=== PATIENT | female | born 1945 | race Caucasian/White ===

== ENCOUNTER 2021-03-26 10:45 | Inpatient (IN) | payer MEDICARE ==
[~2021-03-26] VITALS: Ht 175.3 cm; Wt 136.1 kg
[2021-03-26 11:53] LABS: RED BLOOD COUNT 4.7 M/UL (4.00-5.10); WHITE BLOOD COUNT 8.9 K/UL (4.5-11.0)
[2021-03-26] MEDS ORDERED: HUMALOG MI100 UNIT/4 SQ ×2 (15:50→15:51)
[2021-03-26] MEDS ORDERED: TELMISARTAN80 MG PO (15:50)
[2021-03-26] MEDS ORDERED: GLIMEPIRIDE4 MG PO (15:50)
[2021-03-26] MEDS ORDERED: PAROXETINE HCL20 MG PO (15:51)
[2021-03-26] MEDS ORDERED: PRAVASTATIN SOD10 MG PO (15:52)
[2021-03-26] MEDS ORDERED: DILTIAZEM 24HR240 M1 PO (15:52)
[2021-03-26] MEDS ORDERED: METOPROLOL SUCC50 MG PO (15:53)
[2021-03-27 02:29] LABS: HEMOGLOBIN 12.8 gm/dl (12.3-15.3); RED BLOOD COUNT 4.37 M/UL (4.00-5.10); WHITE BLOOD COUNT 9.5 K/UL (4.5-11.0)
[2021-03-27 02:50] LABS: BUN/CREATININE RATIO 16 (0-10)
[2021-03-27 12:47] LABS: ACINETOBACTER BAUMANNII Not Detected (Negative); CANDIDA ALBICANS Not Detected (Negative); CANDIDA KRUSEI Not Detected (Negative); CANDIDA TROPICALIS Not Detected (Negative); ENTEROCOCCUS Not Detected (Negative); ESCHERICHIA COLI Not Detected (Negative); HAEMOPHILUS INFLUENZAE Not Detected (Negative); KLEBSIELLA OXYTOCA Not Detected (Negative); KLEBSIELLA PNEUMONIAE Not Detected (Negative); KPC-CARBAPENEM-RESISTANCE GENE Not Detected (Negative); PROTEUS Not Detected (Negative); PSEUDOMONAS AERUGINOSA Not Detected (Negative); SERRATIA MARCESANS Not Detected (Negative); STAPHYLOCOCCUS AUREUS Not Detected (Negative); STREP AGALACTIAE (GROUP B) Not Detected (Negative); STREP PYOGENES (GROUP A) Not Detected (Negative); STREPTOCOCCUS Not Detected (Negative); vanA/B (VANCOMYCIN RESIST GENE Not Detected (Negative)
[2021-03-27 13:54] LABS: STAPHYLOCOCCUS DETECTED (Negative); mecA (METHICILLIN RESIST GENE DETECTED (Negative)
[2021-03-28 03:33] LABS: HEMOGLOBIN 13.5 gm/dl (12.3-15.3); RED BLOOD COUNT 4.53 M/UL (4.00-5.10)
[2021-03-28 03:36] LABS: WHITE BLOOD COUNT 6.7 K/UL (4.5-11.0)
[2021-03-29 03:44] LABS: HEMOGLOBIN 13.5 gm/dl (12.3-15.3); RED BLOOD COUNT 4.57 M/UL (4.00-5.10)
[2021-03-29 03:55] LABS: WHITE BLOOD COUNT 8.6 K/UL (4.5-11.0)
[2021-03-30 04:42] LABS: HEMOGLOBIN 13.6 gm/dl (12.3-15.3); RED BLOOD COUNT 4.51 M/UL (4.00-5.10); WHITE BLOOD COUNT 10.6 K/UL (4.5-11.0)
[2021-03-31 03:19] LABS: HEMOGLOBIN 13.3 gm/dl (12.3-15.3); RED BLOOD COUNT 4.4 M/UL (4.00-5.10); WHITE BLOOD COUNT 9.9 K/UL (4.5-11.0)
[2021-03-31 03:49] LABS: BUN/CREATININE RATIO 40 (0-10)
[2021-04-01 10:16] LABS: HEMOGLOBIN 14.4 gm/dl (12.3-15.3); RED BLOOD COUNT 4.79 M/UL (4.00-5.10)
[2021-04-01 10:22] LABS: WHITE BLOOD COUNT 12.7 K/UL (4.5-11.0)
[2021-04-01 10:42] LABS: BUN/CREATININE RATIO 38 (0-10)
[2021-04-02 04:00] LABS: HEMOGLOBIN 14.5 gm/dl (12.3-15.3); RED BLOOD COUNT 4.75 M/UL (4.00-5.10); WHITE BLOOD COUNT 12.1 K/UL (4.5-11.0)
[2021-04-02 04:10] LABS: BUN/CREATININE RATIO 36 (0-10)
[2021-04-03 03:03] LABS: HEMOGLOBIN 14.9 gm/dl (12.3-15.3); RED BLOOD COUNT 4.97 M/UL (4.00-5.10); WHITE BLOOD COUNT 12.4 K/UL (4.5-11.0)
[2021-04-03 03:24] LABS: BUN/CREATININE RATIO 40 (0-10)
[2021-04-03 12:20] LABS: ADENOVIRUS F 40/41 Not Detected (Negative); ASTROVIRUS Not Detected (Negative); CAMPYLOBACTER Not Detected (Negative); CLOSTRIDIUM DIFFICILE TOX A/B Not Detected (Negative); CRYPTOSPORIDIUM Not Detected (Negative); E.COLI 0157 Not Detected (Negative); ENTAMOEBA HISTOLYTICA Not Detected (Negative); ENTEROAGGREGATIVE E.COLI (EAEC Not Detected (Negative); ENTEROPATHOGENIC E.COLI (EPEC) Not Detected (Negative); ENTEROTOXIGENIC E.COLI (ETEC) Not Detected (Negative); GIARDIA LAMBLIA Not Detected (Negative); NOROVIRUS GI/GII Not Detected (Negative); PLESIOMONAS SHIGELLOIDES Not Detected (Negative); ROTOVIRUS A Not Detected (Negative); SALMONELLA Not Detected (Negative); SAPOVIRUS Not Detected (Negative); SHIG/ENTEROINVAS.ECOLI (EIEC) Not Detected (Negative); SHIGA-LIK TOX.PRO.E.COLI (STEC Not Detected (Negative); VIBRIO Not Detected (Negative); VIBRIO CHOLERAE Not Detected (Negative); YERSINIA ENTEROCOLITICA Not Detected (Negative)
[2021-04-04 11:49] LABS: RED BLOOD COUNT 5.05 M/UL (4.00-5.10)
[2021-04-04 11:51] LABS: WHITE BLOOD COUNT 15.9 K/UL (4.5-11.0)
[2021-04-04 13:54] LABS: BUN/CREATININE RATIO 38 (0-10)
[2021-04-05 07:58] LABS: HEMOGLOBIN 15.2 gm/dl (12.3-15.3); RED BLOOD COUNT 5.09 M/UL (4.00-5.10); WHITE BLOOD COUNT 19.4 K/UL (4.5-11.0)
[2021-04-05 08:26] LABS: BUN/CREATININE RATIO 36 (0-10)
[2021-04-06 04:51] LABS: HEMOGLOBIN 15.5 gm/dl (12.3-15.3); RED BLOOD COUNT 5.15 M/UL (4.00-5.10); WHITE BLOOD COUNT 16.2 K/UL (4.5-11.0)
[2021-04-06 05:09] LABS: BUN/CREATININE RATIO 44 (0-10)
[2021-04-07 03:16] LABS: HEMOGLOBIN 16.2 gm/dl (12.3-15.3); RED BLOOD COUNT 5.15 M/UL (4.00-5.10); WHITE BLOOD COUNT 18.9 K/UL (4.5-11.0)
[2021-04-07 03:42] LABS: BUN/CREATININE RATIO 45 (0-10)
[2021-04-08 04:05] LABS: HEMOGLOBIN 16.3 gm/dl (12.3-15.3); RED BLOOD COUNT 5.15 M/UL (4.00-5.10); WHITE BLOOD COUNT 20.5 K/UL (4.5-11.0)
[2021-04-08 04:35] LABS: BUN/CREATININE RATIO 42 (0-10)
[2021-04-09 10:14] LABS: HEMOGLOBIN 16.7 gm/dl (12.3-15.3); RED BLOOD COUNT 5.33 M/UL (4.00-5.10); WHITE BLOOD COUNT 21.6 K/UL (4.5-11.0)
[2021-04-09 10:38] LABS: BUN/CREATININE RATIO 33 (0-10)
[2021-04-10 03:13] LABS: BUN/CREATININE RATIO 50 (0-10)
[2021-04-10 03:46] LABS: HEMOGLOBIN 16.1 gm/dl (12.3-15.3); RED BLOOD COUNT 5.09 M/UL (4.00-5.10); WHITE BLOOD COUNT 13.6 K/UL (4.5-11.0)
[2021-04-10 15:46] LABS: HEMOGLOBIN 15.3 gm/dl (12.3-15.3); RED BLOOD COUNT 4.85 M/UL (4.00-5.10)
[2021-04-10 15:48] LABS: WHITE BLOOD COUNT 27.1 K/UL (4.5-11.0)
--- NOTE | 2021-04-10 15:56 | NUR ---
1436: PT TRANSFERRED TO ICU FROM PCU, PULMONOLOGY AT BEDSIDE, ABG CALLED TO FAMILY, PT INTUBATED PER FAMILY/PT REQUEST. CENTRAL LINE PLACED PER DR HURT. LABS DRAWN, ABG RECHECKED FAMILY UPDATED
[2021-04-10 16:10] LABS: BUN/CREATININE RATIO 44 (0-10)
[2021-04-11 07:59] LABS: HEMOGLOBIN 14.2 gm/dl (12.3-15.3); RED BLOOD COUNT 4.76 M/UL (4.00-5.10); WHITE BLOOD COUNT 26.8 K/UL (4.5-11.0)
--- NOTE | 2021-04-11 14:19 | NUR ---
1300: SPOKE WITH PT SON ARABELLA AND FROILAN. DISCUSSED PT DECLINE IN CONDITION, PT RENAL FUNCTION, MEDS STARTED, NEW CONSULTS, ABG RESULTS. PT SON WISHES TO CHANGE PT CODE STATUS TO DNR BUT CONTINUE WITH CURRENT TREATMENT. MD NOTIFIED. WITNESSED BY KANDY LAMAS RN AND SUSI ADEN RN
[2021-04-12 08:14] LABS: HEMOGLOBIN 14.1 gm/dl (12.3-15.3); RED BLOOD COUNT 4.51 M/UL (4.00-5.10)
[2021-04-12 08:18] LABS: WHITE BLOOD COUNT 31.1 K/UL (4.5-11.0)
[2021-04-13 05:35] LABS: HEMOGLOBIN 12.4 gm/dl (12.3-15.3); RED BLOOD COUNT 4.01 M/UL (4.00-5.10); WHITE BLOOD COUNT 24.9 K/UL (4.5-11.0)
--- NOTE | 2021-04-13 09:57 | NUR ---
SPOKE WITH FAMILY ABOUT COMFORT CARE OPTION, DUE TO PATIENT CONDITION AT THIS TIME. FAMILY IS EXPECTED TO BE AT BEDSIDE SOON TO MAKE A DECISION. ILAN CALLED PER PROTOCOL. PER ILAN, OK TO PROCEED WITH EXTUBATION, IF FAMILY DECIDES TO CHNAGE TO COMFORT CARE/TERMINAL WEANING. PARALYTIC TURNED OFF AT 0930, PER .
--- NOTE | 2021-04-13 14:06 | NUR ---
PT STARTED HAVING RHYTHM CHANGES AND TACHYCARDIA/SVT AND AFIB. O2 SAT ALSO CONTINUING TO DROP. FAMILY NOTIFIED OF CHANGE IN CONDITION AT 1346. AT THIS TIME THE FAMILY IS AT BEDSIDE AND WISHES TO GO FORWARD WITH COMFORT CARE/TERMINAL WEANING. FAMILY EDUCATED ON THE PROCESS OF COMFORT CARE/TERMINAL WEANING. DIPRIVAN IS OFF AT THIS TIME. WHEN FAMILY IS READY, ETT WILL BE REMOVED PER MD ORDER. PT WILL BE KEPT COMFORTABLE WITH MEDICATION PER MD ORDER. WILL CONTINUE TO MONITOR.
--- NOTE | 2021-04-13 15:14 | NUR ---
PER MD ORDER, PT EXTUBATED FOR TERMINAL WEANING AND COMFORT CARE. PLACED ON 2LNC FOR COMFORT. FAMILY IS AT BEDISDE AT THIS TIME. ALL GTTS TURNED OFF PER ORDER EXCEPT FENTANYL FOR COMFORT.
--- NOTE | 2021-04-13 15:53 | NUR ---
AT APPROXIMATELY 1518 THE PATIENT WAS ASYSTOLE ON THE MONITOR. AT THAT TIME THE PATIENT WAS CHECKED FOR A PULSE AND WAS FOUND TO BE PULSELESS. NO HEART TONES HEARD AND NO LUNG SOUNDS HEARD PER 2 RNS (SEE EXPIRATION RECORD). IV'S AND CENTRAL LINE REMOVED. GOLDBERG CATH REMOVED. POST MORTEM CARE PROVIDED TO THE PATIENT. FAMILY WAS NOT PRESENT IN ROOM AT THIS TIME. PER SONS WISHES, MRS. APARICIO WILL BE RELEASED TO [facility]. ILAN CONTACTED WITH [facility] PER PROTOCOL. [facility] CONTACTED.
== END 2021-04-13 15:19 | disposition expired | DRG 137 ==
LOC: ER1 10:45 → CDU 14:10 → PROG CARE 14:10 → CCU 14:10 → PROG CARE 03-27 10:46 → CCU 04-10 14:00
PROVIDERS: Internal Medicine; Internal Medicine Pulmonary Disease; Physician Assistant; Surgery; ADMIT Internal Medicine
PROC: XW033E5 Introduction of Remdesivir Anti-infective into Peripheral Vein, Percutaneous Approach, New Technology Group 5 (ICD-10-PCS; principal; 2021-03-26)
PROC: 5A1945Z Respiratory Ventilation, 24-96 Consecutive Hours (ICD-10-PCS; 2021-03-26)
PROC: 3E0333Z Introduction of Anti-inflammatory into Peripheral Vein, Percutaneous Approach (ICD-10-PCS; 2021-03-26)
PROC: 8E0ZXY6 Isolation (ICD-10-PCS; 2021-03-26)
PROC: B24BZZ4 Ultrasonography of Heart with Aorta, Transesophageal (ICD-10-PCS; 2021-03-29)
PROC: 02HV33Z Insertion of Infusion Device into Superior Vena Cava, Percutaneous Approach (ICD-10-PCS; 2021-04-10)
PROC: B548ZZA Ultrasonography of Superior Vena Cava, Guidance (ICD-10-PCS; 2021-04-10)
PROC: 0BH17EZ Insertion of Endotracheal Airway into Trachea, Via Natural or Artificial Opening (ICD-10-PCS; 2021-04-10)
PROC: 5A1945Z Respiratory Ventilation, 24-96 Consecutive Hours (ICD-10-PCS; 2021-04-10)
PROC: 0DH63UZ Insertion of Feeding Device into Stomach, Percutaneous Approach (ICD-10-PCS; 2021-04-12)
PROC: 3E0G76Z Introduction of Nutritional Substance into Upper GI, Via Natural or Artificial Opening (ICD-10-PCS; 2021-04-12)
DX: U07.1 COVID-19 (principal); J12.82 Pneumonia due to coronavirus disease 2019; K72.00 Acute and subacute hepatic failure without coma; N17.0 Acute kidney failure with tubular necrosis; J80 Acute respiratory distress syndrome; A41.89 Other specified sepsis; R65.21 Severe sepsis with septic shock; E66.2 Morbid (severe) obesity with alveolar hypoventilation; E87.4 Mixed disorder of acid-base balance; Z68.41 Body mass index [BMI] 40.0-44.9, adult; Z51.5 Encounter for palliative care; I10 Essential (primary) hypertension; E78.5 Hyperlipidemia, unspecified; E11.65 Type 2 diabetes mellitus with hyperglycemia; E86.0 Dehydration; L89.322 Pressure ulcer of left buttock, stage 2; E83.51 Hypocalcemia; L89.312 Pressure ulcer of right buttock, stage 2; R00.1 Bradycardia, unspecified; E11.40 Type 2 diabetes mellitus with diabetic neuropathy, unspecified; R19.7 Diarrhea, unspecified; F41.9 Anxiety disorder, unspecified; F32.9 Major depressive disorder, single episode, unspecified; C50.919 Malignant neoplasm of unspecified site of unspecified female breast; Z90.710 Acquired absence of both cervix and uterus; Z90.49 Acquired absence of other specified parts of digestive tract; Z87.09 Personal history of other diseases of the respiratory system; Z79.4 Long term (current) use of insulin
CPT/HCPCS: ECHO; 31500; 36415; 36600; 71045; 71275; 80048; 80053; 82009; 82550; 82553; 82728; 82803; 82962; 83036; 83605; 83615; 83735; 83874; 83880; 84100; 84132; 84484; 85025; 85027; 85379; 85384; 85610; 85730; 86140; 87040; 87077; 87150; 87186; 87507; 93005; 93306; 93970; 94002; 94003; 94640; 94660; 94664; 94760; 96374; 99285; A6212; C9113; J0456; J0610; J0696; J1100; J1650; J1940; J2020; J2060; J2185; J2250; J2270; J2405; J2704; J3010; J7030; J7040; J7070; Q9967; U0002